=== PATIENT | female | born 1935 | race Caucasian/White ===

== ENCOUNTER 2023-02-11 06:39 | Emergency (ER) | payer OTHER ==
[~2023-02-11] VITALS: Ht 162.6 cm; Wt 60.0 kg
[2023-02-11 08:00] VITALS: PULSE 70; RESP 13; O2SAT 96
[2023-02-11] MEDS ORDERED: MORPHINE SULFATE 4 MG/ML SYR/VIAL IV ONE ×2 (08:30→13:15)
[2023-02-11] MEDS ORDERED: ONDANSETRON HCL 4 MG/2 ML VIAL IV ONE (08:30)
[2023-02-11 12:00] LABS: Basophils # (auto) 0.1 10 ^3/uL (0-0.2); Basophils % (auto) 0.5 % (0.0-2.0); Eosinophils # (auto) 0 10 ^3/uL (0-0.8); Eosinophils % (auto) 0.2 % (0.0-7.0); Hematocrit 32.3 % (36.0-46.0); Hemoglobin 10.6 g/dL (12.2-16.2); Lymphocytes # (auto) 1.2 10 ^3/uL (0.4-5.4); Lymphocytes % (auto) 9.4 % (10.0-50.0); Mean Corpuscular Hemoglobin 28.7 pg (28.0-32.0); Mean Corpuscular Hgb Conc. 32.8 g/dL (32.0-36.0); Mean Corpuscular Volume 87.7 fL (80.0-100.0); Monocytes # (auto) 1.2 10 ^3/uL (0-1.3); Monocytes % (auto) 9.2 % (0.0-12.0); Neutrophils # (auto) 10.3 10 ^3/uL (1.6-8.6); Neutrophils % (auto) 80.7 % (37.0-80.0); Red Blood Cells 3.68 10^6/uL (4.0-5.20); Red Cell Distribution Width 15.1 % (11.8-14.3); White Blood Cell 12.7 10^3/uL (4.4-10.8)
[2023-02-11 12:12] LABS: INR 1.11 (0.9-1.15); Prothrombin Time 11.6 sec (9.3-11.8)
[2023-02-11 12:44] LABS: Alanine Aminotransferase 31 U/L (7-40); Alkaline Phosphatase 91 U/L (46-116); Anion Gap 6 (5-15); BUN/Creatinine Ratio 16.3 (10.0-20.0); Blood Urea Nitrogen 16 mg/dL (9-23); Calcium 9.2 mg/dL (8.5-10.1); Carbon Dioxide 30 mmol/L (20-30); Chloride 104 mmol/L (98-107); Glucose 141 mg/dL (74-106); Potassium 4.5 mmol/L (3.5-5.1); Sodium 140 mmol/L (136-145)
[2023-02-11 12:45] LABS: Albumin 4.1 g/dL (3.2-4.8); Aspartate Aminotransferase 51 U/L (13-40); Bilirubin, Total 0.7 mg/dL (0.2-1.0); Total Protein 6.9 g/dL (5.7-8.2)
[2023-02-11 15:35] VITALS: TEMP 98.5; O2SAT 94
[2023-02-11 15:40] VITALS: BP 168/73; PULSE 92; RESP 16
== END 2023-02-11 15:57 | disposition short-term general hospital (02) ==
LOC: EDBD 06:39 → ER 06:39
DX: S72.002A Fracture of unspecified part of neck of left femur, initial encounter for closed fracture (principal); R07.89 Other chest pain; Z88.6 Allergy status to analgesic agent; Z91.040 Latex allergy status; W01.0XXA Fall on same level from slipping, tripping and stumbling without subsequent striking against object, initial encounter; Y93.89 Activity, other specified; Y92.89 Other specified places as the place of occurrence of the external cause; Y99.8 Other external cause status
CPT/HCPCS: 36415; 71045; 73502; 80053; 85025; 85610; 93005; 96374; 96375; 96376; 99285; J2270; J2405

== ENCOUNTER 2024-02-06 09:17 | Inpatient (IN) | payer OTHER ==
[2024-02-06] VITALS (7 sets, daily range): BP systolic 145–182; BP diastolic 60–91; PULSE 73–85; RESP 14–20; TEMP 97.3–98.3; O2SAT 98–100
[~2024-02-06] VITALS: Ht 170.2 cm; Wt 69.4 kg
[2024-02-06] MEDS: IPRATROPIUM BROM 0.5 MG/2.5ML INH SOL NEB ONE (09:33)
[2024-02-06] MEDS: ALBUTEROL SULF 2.5 MG/0.5ML(0.5%) NEB SOLN NEB ONE (09:33)
[2024-02-06] MEDS: MAGNESIUM SULFATE 1GM/100ML 100 ML IV ONE (09:50)
[2024-02-06] MEDS: methylPREDNISolone SOD SUCC 125 MG/2 ML VL IV ONE (09:50)
[2024-02-06 10:28] LABS: Basophils # (auto) 0 10 ^3/uL (0-0.2); Basophils % (auto) 0.2 % (0.0-2.0); Eosinophils # (auto) 0 10 ^3/uL (0-0.8); Eosinophils % (auto) 0.1 % (0.0-7.0); Hematocrit 26.6 % (36.0-46.0); Hemoglobin 8.9 g/dL (12.2-16.2); Lymphocytes # (auto) 1.8 10 ^3/uL (0.4-5.4); Lymphocytes % (auto) 16.8 % (10.0-50.0); Mean Corpuscular Hemoglobin 31.2 pg (28.0-32.0); Mean Corpuscular Hgb Conc. 33.3 g/dL (32.0-36.0); Mean Corpuscular Volume 93.6 fL (80.0-100.0); Monocytes # (auto) 0.6 10 ^3/uL (0-1.3); Monocytes % (auto) 5.5 % (0.0-12.0); Neutrophils # (auto) 8.4 10 ^3/uL (1.6-8.6); Neutrophils % (auto) 77.4 % (37.0-80.0); Nucleated Red Blood Cells % 0.1 %; Platelet Count (auto) 345 10^3/uL (140-450); Red Blood Cells 2.85 10^6/uL (4.0-5.20); Red Cell Distribution Width 13.8 % (11.8-14.3); White Blood Cell 10.9 10^3/uL (4.4-10.8)
[2024-02-06 10:41] LABS: Chloride 104 mmol/L (98-107); Potassium 3.9 mmol/L (3.5-5.1); Sodium 140 mmol/L (136-145)
[2024-02-06 10:42] LABS: Anion Gap 8 (5-15); Calcium 9.3 mg/dL (8.7-10.4); Carbon Dioxide 28 mmol/L (20-31)
[2024-02-06 10:47] LABS: Blood Urea Nitrogen 36 mg/dL (9-23); Glucose 189 mg/dL (74-106)
[2024-02-06 10:56] LABS: Base Excess -0.7 mmol/L (-2.0-3.0)
[2024-02-06] MEDS: cloNIDine HCL 0.1 MG TAB PO ONE (14:10)
[2024-02-06 14:51] LABS: Urine Bacteria None Seen /hpf (None Seen)
[2024-02-06 15:01] LABS: Urine Blood TRACE /uL (Negative); Urine Clarity Clear (Clear); Urine Color Light-Yellow (Yellow); Urine Protein, UAD 3+ (Negative); Urine Specific Gravity 1.013 (1.001-1.035); Urine Urobilinogen Normal (Negative); Urine WBC 2 /hpf (0 - 5)
[2024-02-06] MEDS: hydrALAZINE HCL 20 MG/ML VL IV ONE (15:03)
[2024-02-06] MEDS: SODIUM CHLORIDE 0.9% 1,000 ML IV SCH (15:03)
[2024-02-06] MEDS: NIFEdipine ER 30 MG TAB PO ONE (15:04)
[2024-02-06] MEDS: cefTRIAXone 1GM/50ML D5W 50 ML IV ONE (15:04)
[2024-02-06 15:22] LABS: Triglycerides 119 mg/dL (< 150)
[2024-02-06 15:23] LABS: LDL Cholesterol 43 mg/dL (< 100)
[2024-02-06 15:24] LABS: Cholesterol 128 mg/dL (< 200); HDL Cholesterol 57 mg/dL (40-59)
[2024-02-06] MEDS: AZITHROMYCIN 500MG/ 250ML 250 ML IV ONE (15:35)
[2024-02-06] MEDS: IPRATROPIUM BROM 0.5 MG/2.5ML INH SOL NEB SCH (18:08)
[2024-02-06] MEDS: ALBUTEROL SULF 2.5 MG/0.5ML(0.5%) NEB SOLN NEB SCH (18:08)
[2024-02-06] MEDS: ATORVASTATIN 20 MG TAB PO SCH (21:42)
[2024-02-06] MEDS: methylPREDNISolone SOD SUCC 125 MG/2 ML VL IV SCH (21:42)
[2024-02-06] MEDS ORDERED: GABA-1250 PO (23:36)
[2024-02-06] MEDS ORDERED: HYDR-4902 PO (23:36)
[2024-02-07] VITALS (20 sets, daily range): BP systolic 91–178; BP diastolic 55–119; PULSE 63–111; RESP 16–24; TEMP 97.6–99.2; O2SAT 95–100
[2024-02-07] MEDS ORDERED: CLOP75TA70 PO (00:32)
[2024-02-07] MEDS ORDERED: LOSA25TA5 PO (00:32)
[2024-02-07] MEDS ORDERED: ATOR-507 PO (00:32)
[2024-02-07] MEDS ORDERED: HYDR25TA88 PO (00:32)
[2024-02-07] MEDS ORDERED: POTA-36 PO (00:32)
[2024-02-07] MEDS ORDERED: FURO40TA4 PO (00:32)
[2024-02-07] MEDS ORDERED: NIFE1TAB31 PO (00:32)
[2024-02-07] MEDS ORDERED: MIRT-93 PO (00:32)
[2024-02-07] MEDS ORDERED: METO25TA5 PO (00:32)
[2024-02-07] MEDS ORDERED: METO-158 PO (00:32)
[2024-02-07] MEDS ORDERED: LEVO100T8 PO (00:32)
[2024-02-07] MEDS: HYDROcodone-ACET 5/325MG TAB PO ONE (01:14)
[2024-02-07 07:06] LABS: Basophils # (auto) 0 10 ^3/uL (0-0.2); Basophils % (auto) 0.1 % (0.0-2.0); Eosinophils # (auto) 0 10 ^3/uL (0-0.8); Hemoglobin 7.4 g/dL (12.2-16.2); Lymphocytes # (auto) 0.8 10 ^3/uL (0.4-5.4); Lymphocytes % (auto) 9.2 % (10.0-50.0); Monocytes # (auto) 0.5 10 ^3/uL (0-1.3)
[2024-02-07 07:07] LABS: Hematocrit 21.4 % (36.0-46.0); Mean Corpuscular Hemoglobin 32.3 pg (28.0-32.0); Mean Corpuscular Hgb Conc. 34.5 g/dL (32.0-36.0); Mean Corpuscular Volume 93.4 fL (80.0-100.0); Monocytes % (auto) 5.7 % (0.0-12.0); Neutrophils # (auto) 7.2 10 ^3/uL (1.6-8.6); Platelet Count (auto) 219 10^3/uL (140-450); Red Blood Cells 2.29 10^6/uL (4.0-5.20); Red Cell Distribution Width 14.2 % (11.8-14.3); White Blood Cell 8.5 10^3/uL (4.4-10.8)
[2024-02-07 07:13] LABS: Alanine Aminotransferase 13 U/L (7-40); Alkaline Phosphatase 58 U/L (46-116); Anion Gap 6 (5-15); BUN/Creatinine Ratio 25.3 (10.0-20.0); Blood Urea Nitrogen 40 mg/dL (9-23); Calcium 8.8 mg/dL (8.7-10.4); Carbon Dioxide 27 mmol/L (20-31); Chloride 106 mmol/L (98-107); Glucose 297 mg/dL (74-106); Potassium 4.1 mmol/L (3.5-5.1); Sodium 139 mmol/L (136-145)
[2024-02-07 07:14] LABS: Albumin 3.6 g/dL (3.2-4.8); Aspartate Aminotransferase 13 U/L (13-40); Bilirubin, Total 0.3 mg/dL (0.2-1.0); Total Protein 6.2 g/dL (5.7-8.2)
[2024-02-07] MEDS: cefTRIAXone 1GM/50ML D5W 50 ML IV SCH (08:07)
[2024-02-07] MEDS: ALBUTEROL SULF 2.5 MG/0.5ML(0.5%) NEB SOLN NEB PRN (09:13)
[2024-02-07] MEDS: IPRATROPIUM BROM 0.5 MG/2.5ML INH SOL NEB PRN (09:14)
[2024-02-07] MEDS: NIFEdipine ER 30 MG TAB PO SCH (09:24)
[2024-02-07] MEDS: ENOXAPARIN SOD 40 MG/0.4 ML SYRINGE SC SCH (09:24)
[2024-02-07] MEDS: AZITHROMYCIN 500MG/ 250ML 250 ML IV SCH (09:25)
[2024-02-07] MEDS: METOPROLOL SUCCINATE XL 50 MG TAB PO ONE (12:32)
[2024-02-07] MEDS: LOSARTAN POTASSIUM 25 MG TAB PO ONE (13:39)
[2024-02-07 15:03] LABS: INR 1.12 (0.9-1.15); Partial Thromboplastin Time 26.6 SEC (24.5-34.5); Prothrombin Time 11.8 sec (9.3-11.8)
[2024-02-07] MEDS: FUROSEMIDE 40 MG/4 ML VIAL IV ONE (15:38)
[2024-02-07] MEDS: ALBUTEROL SULF 2.5 MG/0.5ML(0.5%) NEB SOLN NEB SCH (18:00)
[2024-02-07] MEDS: IPRATROPIUM BROM 0.5 MG/2.5ML INH SOL NEB SCH (18:00)
[2024-02-07 19:37] LABS: Body Fluid Red Blood Cells 412 CUMM (0-2000); Body Fluid White Blood Cells 77 CUMM (0-200)
[2024-02-07 19:52] LABS: Body Fluid Polymorphonuclear 34 % (0-25)
[2024-02-07] MEDS: HYDROcodone-ACET 5/325MG TAB PO PRN (20:39)
[2024-02-07] MEDS: methylPREDNISolone SOD SUCC 125 MG/2 ML VL IV SCH (21:37)
[2024-02-07] MEDS: hydrALAZINE HCL 20 MG/ML VL IV PRN (21:40)
[2024-02-08] VITALS (18 sets, daily range): BP systolic 152–170; BP diastolic 53–72; PULSE 61–108; RESP 16–22; TEMP 97.2–98.7; O2SAT 93–100
[2024-02-08] MEDS: cloNIDine HCL 0.1 MG TAB PO ONE
[2024-02-08] MEDS: TEMAZEPAM 15 MG CAP PO ONE (00:57)
[2024-02-08] MEDS: LEVOTHYROXINE SODIUM 100 MCG TAB PO SCH (05:21)
[2024-02-08 05:37] LABS: Basophils # (auto) 0 10 ^3/uL (0-0.2); Basophils % (auto) 0.1 % (0.0-2.0); Eosinophils # (auto) 0 10 ^3/uL (0-0.8); Hematocrit 25.2 % (36.0-46.0); Hemoglobin 8.5 g/dL (12.2-16.2); Lymphocytes # (auto) 0.7 10 ^3/uL (0.4-5.4); Lymphocytes % (auto) 8.8 % (10.0-50.0); Mean Corpuscular Hemoglobin 31.4 pg (28.0-32.0); Mean Corpuscular Hgb Conc. 33.5 g/dL (32.0-36.0); Mean Corpuscular Volume 93.7 fL (80.0-100.0); Monocytes # (auto) 0.5 10 ^3/uL (0-1.3); Monocytes % (auto) 5.6 % (0.0-12.0); Neutrophils # (auto) 7.3 10 ^3/uL (1.6-8.6); Neutrophils % (auto) 85.5 % (37.0-80.0); Platelet Count (auto) 219 10^3/uL (140-450); Red Blood Cells 2.69 10^6/uL (4.0-5.20); Red Cell Distribution Width 14.1 % (11.8-14.3); White Blood Cell 8.5 10^3/uL (4.4-10.8)
[2024-02-08 05:41] LABS: INR 1.15 (0.9-1.15); Partial Thromboplastin Time 25.7 SEC (24.5-34.5); Prothrombin Time 12.1 sec (9.3-11.8)
[2024-02-08 05:52] LABS: Chloride 104 mmol/L (98-107); Potassium 4.4 mmol/L (3.5-5.1); Sodium 137 mmol/L (136-145)
[2024-02-08 05:53] LABS: Anion Gap 7 (5-15); Calcium 8.8 mg/dL (8.7-10.4); Carbon Dioxide 26 mmol/L (20-31)
[2024-02-08 05:58] LABS: BUN/Creatinine Ratio 29.3 (10.0-20.0); Blood Urea Nitrogen 41 mg/dL (9-23); Glucose 317 mg/dL (74-106)
[2024-02-08] MEDS: AZITHROMYCIN 250 MG TAB PO SCH (09:31)
[2024-02-08] MEDS: LOSARTAN POTASSIUM 25 MG TAB PO SCH (09:32)
[2024-02-08] MEDS: METOPROLOL SUCCINATE XL 50 MG TAB PO SCH (09:33)
[2024-02-08] MEDS: FUROSEMIDE 40 MG/4 ML VIAL IV SCH (09:36)
[2024-02-08] MEDS: ENOXAPARIN SOD 30 MG/0.3 ML SYRINGE SC SCH (09:37)
[2024-02-08] MEDS: IRON SUCROSE COMPLEX 110 ML IV SCH (12:22)
[2024-02-08] MEDS: LOSARTAN POTASSIUM 50 MG TAB PO ONE (16:55)
[2024-02-08] MEDS ORDERED: ARTIFICIAL TEARS 15ml EACHEYE PRN (17:15)
[2024-02-08] MEDS: ALPRAZolam 0.25 MG TAB PO PRN (17:26)
[2024-02-08] MEDS: Ensure HIGH Protein Vanilla 8oz Bottle PO SCH (18:00)
[2024-02-09] VITALS (18 sets, daily range): BP systolic 123–169; BP diastolic 63–72; PULSE 63–93; RESP 14–20; TEMP 98–98.7; O2SAT 95–100
[2024-02-09] MEDS: TEMAZEPAM 15 MG CAP PO ONE (00:41)
[2024-02-09 05:25] LABS: Basophils # (auto) 0 10 ^3/uL (0-0.2); Basophils % (auto) 0.2 % (0.0-2.0); Eosinophils # (auto) 0 10 ^3/uL (0-0.8); Hematocrit 26.1 % (36.0-46.0); Hemoglobin 8.7 g/dL (12.2-16.2); Lymphocytes # (auto) 0.7 10 ^3/uL (0.4-5.4); Lymphocytes % (auto) 8.3 % (10.0-50.0); Mean Corpuscular Hemoglobin 31.2 pg (28.0-32.0); Mean Corpuscular Hgb Conc. 33.2 g/dL (32.0-36.0); Mean Corpuscular Volume 93.9 fL (80.0-100.0); Monocytes # (auto) 0.5 10 ^3/uL (0-1.3); Neutrophils # (auto) 7.6 10 ^3/uL (1.6-8.6); Neutrophils % (auto) 85.5 % (37.0-80.0); Platelet Count (auto) 231 10^3/uL (140-450); Red Blood Cells 2.78 10^6/uL (4.0-5.20); Red Cell Distribution Width 14.2 % (11.8-14.3); White Blood Cell 8.9 10^3/uL (4.4-10.8)
[2024-02-09 05:33] LABS: Chloride 104 mmol/L (98-107); Potassium 4.4 mmol/L (3.5-5.1); Sodium 137 mmol/L (136-145)
[2024-02-09 05:34] LABS: Anion Gap 7 (5-15); Calcium 8.6 mg/dL (8.7-10.4); Carbon Dioxide 26 mmol/L (20-31)
[2024-02-09 05:39] LABS: Blood Urea Nitrogen 47 mg/dL (9-23); Glucose 323 mg/dL (74-106)
[2024-02-09] MEDS: LOSARTAN POTASSIUM 25 MG TAB PO SCH (10:25)
[2024-02-09 13:07] LABS: Protein, Body Fluid 1.6 g/dL (.)
[2024-02-09] MEDS ORDERED: cloNIDine HCL 0.1 MG TAB PO PRN (14:00)
[2024-02-09] MEDS: hydrALAZINE HCL 25 MG TAB PO SCH (14:46)
[2024-02-10] VITALS (12 sets, daily range): BP systolic 146–181; BP diastolic 65–84; PULSE 61–89; RESP 16–17; TEMP 98.1–98.8; O2SAT 3–100
[2024-02-10] MEDS: hydrALAZINE HCL 10 MG TAB PO ONE (00:59)
[2024-02-10] MEDS: FUROSEMIDE 40 MG TAB PO SCH (10:19)
[2024-02-10] MEDS ORDERED: ALPR0.25 PO ×2 (10:37→11:55)
[2024-02-10] MEDS ORDERED: LOSA-534 PO (10:37)
[2024-02-10] MEDS ORDERED: AZIT-74 PO (10:37)
[2024-02-10] MEDS ORDERED: PRED20TA2 PO (10:37)
[2024-02-10] MEDS ORDERED: TEMAZEPAM 15 MG CAP PO PRN (10:45)
== END 2024-02-10 17:50 | disposition home or self-care (01) | DRG 177 ==
LOC: ER 09:17 → EDBD 09:17 → TELE 12:59 → TELE-WESTW 17:29 → TELE-EAST 02-07 21:10
PROVIDERS: ADMIT Registered Nurse; ATTEND Internal Medicine
PROC: 5A09357 Assistance with Respiratory Ventilation, Less than 24 Consecutive Hours, Continuous Positive Airway Pressure (ICD-10-PCS; 2024-02-06)
PROC: 30233N1 Transfusion of Nonautologous Red Blood Cells into Peripheral Vein, Percutaneous Approach (ICD-10-PCS; principal; 2024-02-07)
PROC: 0W9B3ZZ Drainage of Left Pleural Cavity, Percutaneous Approach (ICD-10-PCS; 2024-02-07)
DX: J15.69 Pneumonia due to other Gram-negative bacteria (principal); I50.33 Acute on chronic diastolic (congestive) heart failure; J96.21 Acute and chronic respiratory failure with hypoxia; I13.0 Hypertensive heart and chronic kidney disease with heart failure and stage 1 through stage 4 chronic kidney disease, or unspecified chronic kidney disease; J44.1 Chronic obstructive pulmonary disease with (acute) exacerbation; J44.0 Chronic obstructive pulmonary disease with (acute) lower respiratory infection; Z66 Do not resuscitate; E78.5 Hyperlipidemia, unspecified; E03.9 Hypothyroidism, unspecified; D64.9 Anemia, unspecified; N18.32 Chronic kidney disease, stage 3b; I16.0 Hypertensive urgency; F41.9 Anxiety disorder, unspecified; Z88.6 Allergy status to analgesic agent; Z91.040 Latex allergy status
CPT/HCPCS: 32555; 36415; 36600; 71045; 76604; 76942; 80048; 80053; 80061; 81001; 82805; 83036; 83735; 83880; 83986; 84443; 84484; 85025; 85610; 85730; 86850; 86900; 86901; 86920; 87040; 87081; 87086; 87205; 89051; 93005; 93306; 94640; 94660; 97110; 97116; 97163; 97530; 99291; G0378; J1756